=== PATIENT | male | born 1965 | race Caucasian/White ===

== ENCOUNTER 2017-05-13 13:11 | Inpatient (IN) | payer OTHER ==
[2017-05-13 13:16] VITALS: BMI 28.4
--- NOTE | 2017-05-13 19:07 | HP ---
CIWA Score - CIWA Score Nausea/Vomitin Muscle Tremors: 3 Anxiety: 3 Agitation: 3 Paroxysmal Sweats: 2 Orientation: 0-Oriented Tacttile Disturbances: 2-Mild Itch/Numbness/Burn Auditory Disturbances: 2-Mild Harshness/Frighten Visual Disturbances: 2-Mild Sensitivity Headache: 2-Mild CIWA-Ar Total Score: 22 Admission ROS BHS - HPI Chief Complaint: i am here need help to top drinking Allergies/Adverse Reactions: Allergies Allergy/AdvReac Type Severity Reaction Status Date / Time No Known Allergies Allergy Verified 05/13/17 19:04 History of Present Illness: this 51 years old male with alcohol dependence,seeking detox,withdrawal symptom, last detox [address] [facility] alcohol related syncope anxiety,depression,insomnia longest period of sobriety 2 years Exam Limitations: No Limitations - Ebola screening Have you traveled outside of the country in the last 21 days: No Have you been sick,other than usual withdrawal symptoms: No - Review of Systems Constitutional: Loss of Appetite, Malaise, Night Sweats, Changes in sleep, Weakness, Unintentional Wgt. Loss EENT: reports: Nose Congestion Respiratory: reports: No Symptoms reported Cardiac: reports: Palpitations GI: reports: Diarrhea, Nausea, Vomiting, Abdominal cramping : reports: No Symptoms Reported Musculoskeletal: reports: Back Pain, Muscle Pain Integumentary: reports: Dryness Neuro: reports: No Symptoms reported, Headache, Tremors Endocrine: reports: No Symptoms Reported Hematology: reports: No Symptoms Reported Psychiatric: reports: No Sypmtoms Reported, Judgement Intact, Mood/Affect Appropiate, Orientated x3 (insomnia), Anxious, Depressed Patient History - Patient Medical History Hx Anemia: No Hx Asthma: No Hx Chronic Obstructive Pulmonary Disease (COPD): No Hx Cancer: No Hx Cardiac Disorders: No Hx Congestive Heart Failure: No Hx Hypertension: No Hx Hypercholesterolemia: No Hx Pacemaker: No HX Cerebrovascular Accident: No Hx Seizures: No Hx Dementia: No Hx Diabetes: No Hx Gastrointestinal Disorders: No Hx Liver Disease: No Hx Genitourinary Disorders: No Hx Sexually Transmitted Disorders: No Hx Renal Disease (ESRD): No Hx Thyroid Disease: No Hx Human Immunodeficiency Virus (HIV): No (last tested negative in 2016) Hx Hepatitis C: No Hx Depression: Yes (insomnia) Hx Suicide Attempt: No Hx Bipolar Disorder: No Hx Schizophrenia: No Other Medical History: no suicidal,no hoicidal - Patient Surgical History Past Surgical History: No - PPD History Documented Results: Negative w/o proof Implanted On Prior [facility] Admission?: No PPD to be Administered?: Yes - Smoking Cessation Smoking history: Never smoked - Substance & Tx. History Hx Alcohol Use: Yes Hx Substance Use: No Substance Use Type: Alcohol Hx Substance Use Treatment: Yes (rafael 2015 ) - Substances Abused Alcohol Route: Oral Frequency: Daily Amount used: 2pints of vodka Age of first use: 16 Date of Last Use: 05/13/17 Family Disease History - Family Disease History Family Disease History: Diabetes: Mother (), [place]: Father (prostate ) Admission Physical Exam [facility] - Vital Signs Vital Signs: Vital Signs - 24 hr 05/13/17 13:15 Temperature 96.9 F L Pulse Rate 84 Respiratory 18 Rate Blood Pressure 109/71 - Physical General Appearance: Yes: Moderate Distress, Tremorous, Irritable, Sweating, Anxious HEENTM: Yes: Normal ENT Inspection, Normocephalic, [place], Pharynx Normal Respiratory: Yes: Lungs Clear, Normal Breath Sounds, No Respiratory Distress Neck: Yes: Within Normal Limits, Supple, Trachea in good position Breast: Yes: Within Normal Limits Cardiology: Yes: Within Normal Limits, Regular Rhythm, Regular Rate, S1, S2 Abdominal: Yes: Within Normal Limits, Normal Bowel Sounds, Non Tender, Flat, Soft Genitourinary: Yes: Within Normal Limits Back: Yes: Within Normal Limits, Normal Inspection, Muscle Spasm Extremities: Yes: Within Normal Limits, Tremors Neurological: Yes: wood scaler II-XII NML intact, Fully Oriented, Alert, Motor Strength 5/5 Integumentary: Yes: Dry Lymphatic: Yes: Within Normal Limits - Diagnostic (1) Alcohol dependence with uncomplicated withdrawal Current Visit: Yes Status: Acute (2) Syncope Current Visit: Yes Status: Acute (3) Weight loss Current Visit: Yes Status: Acute (4) Insomnia secondary to depression with anxiety Current Visit: Yes Status: Acute Cleared for Admission [facility] - Detox or Rehab [facility] Level of Care: Medically Managed Detox Regimen/Protocol: Librium S Breath Alcohol Content Breath Alcohol Content: 0.132 Urine Drug Screen - Results Drug Screen Negative: Yes
[2017-05-13] MEDS ORDERED: guaiFENesin/D-METHORPHAN HB 10 ML UNIT-DOSE CUPS PO PRN (19:21)
[2017-05-13] MEDS ORDERED: MENTHOL/PHENOL 1 EACH UD MM PRN (19:21)
[2017-05-13] MEDS ORDERED: MAGNESIUM CITRATE 300 ML BOTTLE PO PRN (19:21)
[2017-05-13] MEDS ORDERED: IBUPROFEN 400 MG TABLET (FP) PO PRN (19:21)
[2017-05-13] MEDS ORDERED: MAG HYDROX/AL HYDROX/SIMETH 30 ML UNIT-DOSE CUP PO PRN (19:21)
[2017-05-13] MEDS ORDERED: chlordiazePOXIDE HCL 25 MG CAPSULE PO PRN (19:21)
[2017-05-13] MEDS ORDERED: LOPERAMIDE HCL 2 MG CAPSULE PO PRN (19:21)
[2017-05-13] MEDS ORDERED: P-EPHED 60MG/TRIPROLIDI 2.5MG TABLET PO PRN (19:21)
[2017-05-13] MEDS ORDERED: hydrOXYzine PAMOATE 50 MG CAPSULE (FP) PO PRN (19:21)
[2017-05-13] MEDS ORDERED: ACETAMINOPHEN 325 MG TABLET (FP) PO PRN (19:21)
[2017-05-13] MEDS ORDERED: MAGNESIUM HYDROX 2400MG/30ML ORAL SUSPENSION 30 ML CUP PO PRN (19:21)
[2017-05-13] MEDS ORDERED: chlordiazePOXIDE HCL 25 MG CAPSULE PO ONE (19:21)
[2017-05-13] MEDS: THIAMINE HCL 100 MG TABLET (FP) PO SCH (22:43)
[2017-05-13] MEDS: chlordiazePOXIDE HCL 25 MG CAPSULE PO SCH (22:43)
[2017-05-13 23:39] LABS: URINE APPEARANCE CLEAR; URINE BILIRUBIN NEGATIVE (NEGATIVE); URINE BLOOD NEGATIVE (NEGATIVE); URINE COLOR AMBER; URINE GLUCOSE (UA) NEGATIVE (NEGATIVE); URINE KETONE NEGATIVE (NEGATIVE); URINE LEUK ESTERASE NEGATIVE (NEGATIVE); URINE NITRITE NEGATIVE (NEGATIVE); URINE UROBILINOGEN 4.0 E.U/dl mg/dL (0.2-1.0)
[2017-05-13 23:48] LABS: URINE PROTEIN 1+ (NEGATIVE)
[2017-05-14 00:13] LABS: CALCIUM OXALATE CRYSTALS RARE /hpf (NONE SEEN); URINE MUCUS FEW
[2017-05-14] MEDS: chlordiazePOXIDE HCL 25 MG CAPSULE PO SCH ×4 (05:26→22:14)
--- NOTE | 2017-05-14 10:03 | PN ---
S CIWA - CIWA Score Nausea/Vomitin Muscle Tremors: 3 Anxiety: 3 Agitation: 2 Paroxysmal Sweats: 1-Minimal Palms Moist Orientation: 0-Oriented Tacttile Disturbances: 1-Very Mild Itch/Numbness Auditory Disturbances: 1-Very Mild Visual Disturbances: 0-None Headache: 2-Mild CIWA-Ar Total Score: 16 BHS Progress Note (SOAP) Subjective: ALERT,IRRITABLE,ANXIOUS,INTERRUPTED SLEEP,TREMOR Objective: 05/14/17 10:02 Vital Signs Temperature 97.1 F L 05/14/17 06:38 Pulse Rate 60 05/14/17 06:38 Respiratory Rate 18 05/14/17 06:38 Blood Pressure 131/85 05/14/17 06:38 O2 Sat by Pulse Oximetry (%) 05/14/17 10:02 EKG NSR,NORMAL ECG Laboratory Last Values Urine Color Gris 05/13/17 23:25 Urine Appearance Clear 05/13/17 23:25 Urine pH 6.0 (5.0-8.0) 05/13/17 23:25 Ur Specific [place] 1.028 (1.001-1.035) 05/13/17 23:25 Urine Protein 1+ (NEGATIVE) H 05/13/17 23:25 Urine Glucose (UA) Negative (NEGATIVE) 05/13/17 23:25 Urine Ketones Negative (NEGATIVE) 05/13/17 23:25 Urine Blood Negative (NEGATIVE) 05/13/17 23:25 Urine Nitrite Negative (NEGATIVE) 05/13/17 23:25 Urine Bilirubin Negative (NEGATIVE) 05/13/17 23:25 Urine Urobilinogen 4.0 e.u/dl mg/dL (0.2-1.0) 05/13/17 23:25 Ur Leukocyte Esterase Negative (NEGATIVE) 05/13/17 23:25 Urine WBC (Auto) 2 /hpf (3-5) 05/13/17 23:25 Urine RBC (Auto) 2 /hpf (0-3) 05/13/17 23:25 Calcium Oxalate Crystal Rare /hpf (NONE SEEN) 05/13/17 23:25 Urine Mucus Few 05/13/17 23:25 LABS PENDING Assessment: 05/14/17 10:03 WITHDRAWAL SYMPTOM Plan: CONTINUE DETOX
--- NOTE | 2017-05-14 10:04 | CONSULT ---
[facility] Psychiatric Consult - Data Date of interview: 05/14/17 Admission source: [facility] Identifying data: Pt. is a 51 year old single male, father of two kids, and currently unemployed. This is patient's first admission to [facility]. Pt. admitted to for alcohol dependence. Substance Abuse History: Following information confirmed with Mr. Lopez: Substance & Tx. History. Hx Alcohol Use: Yes. Hx Substance Use: No. Substance Use Type: Alcohol. Hx Substance Use Treatment: Yes (rafael Cheung ). - Substances Abused. Alcohol. Route: Oral. Frequency: Daily. Amount used : 2pints of vodka. Age of first use: 16. Date of Last Use: 05/13/17 Medical History: Denies. Psychiatric History: Pt. denies h/o psychiatric hospitalization, outpatient care , and suicide attempt. Physical/Sexual Abuse/Trauma History: Denies. Mental Status Exam - Mental Status Exam Alert and Oriented to: Time, Place, Person Cognitive Function: Good Patient Appearance: Well Groomed Mood: Euthymic Affect: Mood Congruent Patient Behavior: Appropriate Speech Pattern: Appropriate Voice Loudness: Normal Thought Process: Goal Oriented Thought Disorder: Not Present Hallucinations: Denies Suicidal Ideation: Denies Homicidal Ideation: Denies Insight/Judgement: Poor Sleep: Fair Appetite: Fair Muscle strength/Tone: Normal Gait/Station: Normal Psychiatric Findings - Problem List ([place] 1, 2,3) (1) Alcohol dependence with uncomplicated withdrawal Current Visit: Yes Status: Acute - Initial Treatment Plan Initial Treatment Plan: Psychoeducation provided. Detoxification provided. Observation.
[2017-05-14] MEDS: PRENATAL VITAMINS W/ FOLIC ACID TABLET (FP) PO SCH (10:24)
[2017-05-14 10:43] LABS: HEMATOCRIT 38.8 % (35.4-49); HEMOGLOBIN 12.9 GM/dL (11.7-16.9); MCH 33.3 pg (25.7-33.7); MCHC 33.1 g/dl (32.0-35.9); MEAN CELL VOLUME 100.4 fl (80-96); MEAN PLT VOLUME 9.6 fl (7.5-11.1); PLATELET COUNT 140 K/MM3 (134-434); RBC 3.86 M/mm3 (4.00-5.60); RDW 13.6 % (11.9-15.9); WHITE BLOOD COUNT 3.4 K/mm3 (4.0-10.0)
[2017-05-14 10:52] LABS: CHLORIDE 99 mmol/L (98-107); POTASSIUM 3.2 mmol/L (3.5-5.1); SODIUM 140 mmol/L (136-145)
[2017-05-14 11:08] LABS: ALBUMIN 3.4 g/dl (3.4-5.0); ALK PHOS 59 U/L (45-117); ANION GAP 9 (8-16); BILIRUBIN,TOTAL 2.1 mg/dL (0.2-1.0); BLOOD UREA NITROGEN 9 mg/dL (7-18); CALCIUM 8.8 mg/dL (8.5-10.1); CO2 32 mmol/L (21-32); CREATININE 0.8 mg/dL (0.7-1.3); GLUCOSE,RANDOM 86 mg/dL (74-106); SGOT/AST 52 U/L (15-37); SGPT/ALT 64 U/L (12-78); TOT PROT 6.5 g/dl (6.4-8.2)
[2017-05-14] MEDS ORDERED: FLU VACCINE QUAD 60 MCG/0.5 ML (MDV 17-18) IM ONE (12:00)
[2017-05-14 12:51] LABS: SICKLE CELL SCREEN NEGATIVE (NEGATIVE)
[2017-05-14] MEDS: THIAMINE HCL 100 MG TABLET (FP) PO SCH (22:14)
--- NOTE | 2017-05-14 23:29 | EKG ---
Test Reason : Blood Pressure : / mmHG Vent. Rate : 071 BPM Atrial Rate : 071 BPM P-R Int : 174 ms QRS Dur : 100 ms QT Int : 394 ms P-R-T Axes : 070 055 022 degrees QTc Int : 428 ms NORMAL SINUS RHYTHM NORMAL ECG NO PREVIOUS ECGS AVAILABLE Confirmed by GENNY BOLIVAR, IZZY ([id number]) on 05/14/2017 11:28:44 PM Referred By: Rudy Sargent Confirmed By:IZZY ROYAL MD
[2017-05-15] MEDS: chlordiazePOXIDE HCL 25 MG CAPSULE PO SCH ×3 (05:14→17:32)
--- NOTE | 2017-05-15 09:39 | PN ---
S CIWA - CIWA Score Nausea/Vomitin Muscle Tremors: 3 Anxiety: 3 Agitation: 3 Paroxysmal Sweats: No Perspiration Orientation: 0-Oriented Tacttile Disturbances: 1-Very Mild Itch/Numbness Auditory Disturbances: 1-Very Mild Visual Disturbances: 0-None Headache: 2-Mild CIWA-Ar Total Score: 16 BHS Progress Note (SOAP) Subjective: ALERT,IRRITABLE,ANXIOUS,INTERRUPTED SLEEP,TREMOR Objective: 05/15/17 09:39 Vital Signs Temperature 98.4 F 05/15/17 06:00 Pulse Rate 73 05/15/17 06:00 Respiratory Rate 18 05/15/17 06:00 Blood Pressure 116/83 05/15/17 06:00 O2 Sat by Pulse Oximetry (%) 05/15/17 09:40 Laboratory Last Values WBC 3.4 K/mm3 (4.0-10.0) L 05/14/17 08:10 RBC 3.86 M/mm3 (4.00-5.60) L 05/14/17 08:10 Hgb 12.9 GM/dL (11.7-16.9) 05/14/17 08:10 Hct 38.8 % (35.4-49) 05/14/17 08:10 MCV 100.4 fl (80-96) H 05/14/17 08:10 MCH 33.3 pg (25.7-33.7) 05/14/17 08:10 MCHC 33.1 g/dl (32.0-35.9) 05/14/17 08:10 RDW 13.6 % (11.9-15.9) 05/14/17 08:10 Plt Count 140 K/MM3 (134-434) 05/14/17 08:10 MPV 9.6 fl (7.5-11.1) 05/14/17 08:10 Sickle Cell Screen Negative (NEGATIVE) 05/14/17 08:10 Sodium 140 mmol/L (136-145) 05/14/17 08:10 Potassium 3.2 mmol/L (3.5-5.1) L 05/14/17 08:10 Chloride 99 mmol/L (98-107) 05/14/17 08:10 Carbon Dioxide 32 mmol/L (21-32) 05/14/17 08:10 Anion Gap 9 (8-16) 05/14/17 08:10 BUN 9 mg/dL (7-18) 05/14/17 08:10 Creatinine 0.8 mg/dL (0.7-1.3) 05/14/17 08:10 Creat Clearance w eGFR > 60 (>60) 05/14/17 08:10 Random Glucose 86 mg/dL (74-106) 05/14/17 08:10 Calcium 8.8 mg/dL (8.5-10.1) 05/14/17 08:10 Total Bilirubin 2.1 mg/dL (0.2-1.0) H 05/14/17 08:10 AST 52 U/L (15-37) H 05/14/17 08:10 ALT 64 U/L (12-78) 05/14/17 08:10 Alkaline Phosphatase 59 U/L (45-117) 05/14/17 08:10 Total Protein 6.5 g/dl (6.4-8.2) 05/14/17 08:10 Albumin 3.4 g/dl (3.4-5.0) 05/14/17 08:10 Urine Color Gris 05/13/17 23:25 Urine Appearance Clear 05/13/17 23:25 Urine pH 6.0 (5.0-8.0) 05/13/17 23:25 Ur Specific [place] 1.028 (1.001-1.035) 05/13/17 23:25 Urine Protein 1+ (NEGATIVE) H 05/13/17 23:25 Urine Glucose (UA) Negative (NEGATIVE) 05/13/17 23:25 Urine Ketones Negative (NEGATIVE) 05/13/17 23:25 Urine Blood Negative (NEGATIVE) 05/13/17 23:25 Urine Nitrite Negative (NEGATIVE) 05/13/17 23:25 Urine Bilirubin Negative (NEGATIVE) 05/13/17 23:25 Urine Urobilinogen 4.0 e.u/dl mg/dL (0.2-1.0) 05/13/17 23:25 Ur Leukocyte Esterase Negative (NEGATIVE) 05/13/17 23:25 Urine WBC (Auto) 2 /hpf (3-5) 05/13/17 23:25 Urine RBC (Auto) 2 /hpf (0-3) 05/13/17 23:25 Calcium Oxalate Crystal Rare /hpf (NONE SEEN) 05/13/17 23:25 Urine Mucus Few 05/13/17 23:25 RPR Titer Nonreactive (NONREACTIVE) 05/14/17 08:10 HIV 1&2 Antibody Screen Negative 05/14/17 08:10 HIV P24 Antigen Negative 05/14/17 08:10 Assessment: 05/15/17 09:39 WITHDRAWAL SYMPTOM Plan: CONTINUE DETOX,HYPOKALEMIA K IS 3.2,K DUR 20 MEQ PO BID,REPEAT CBC,CMP IN AM, INITAIL CBC WBC IS 3,400
[2017-05-15] MEDS: PRENATAL VITAMINS W/ FOLIC ACID TABLET (FP) PO SCH (10:19)
[2017-05-15] MEDS: POTASSIUM CHLORIDE TABS 20 MEQ TABLET.ER (FP) PO SCH ×2 (10:20→22:25)
[2017-05-15] MEDS: THIAMINE HCL 100 MG TABLET (FP) PO SCH (22:25)
[2017-05-15] MEDS: chlordiazePOXIDE 5 MG CAPSULE PO SCH (22:25)
[2017-05-16] MEDS: chlordiazePOXIDE 5 MG CAPSULE PO SCH ×3 (05:36→17:55)
[2017-05-16] MEDS: POTASSIUM CHLORIDE TABS 20 MEQ TABLET.ER (FP) PO SCH ×2 (10:11→22:34)
[2017-05-16] MEDS: PRENATAL VITAMINS W/ FOLIC ACID TABLET (FP) PO SCH (10:11)
--- NOTE | 2017-05-16 10:15 | PN ---
S Progress Note (SOAP) Subjective: ALERT,IRRITABLE,ANXIOUS,INTERRUPTED SLEEP Objective: 05/16/17 10:14 Vital Signs Temperature 98.2 F 05/16/17 10:07 Pulse Rate 85 05/16/17 10:07 Respiratory Rate 18 05/16/17 10:07 Blood Pressure 123/76 05/16/17 10:07 O2 Sat by Pulse Oximetry (%) Assessment: 05/16/17 10:14 WITHDRAWAL SYMPTOM Plan: CONTINUE DETOX,DISCHARGE IN AM
[2017-05-16 10:27] LABS: HEMOGLOBIN 13.2 GM/dL (11.7-16.9); MCH 32.8 pg (25.7-33.7); MCHC 32.3 g/dl (32.0-35.9); MEAN CELL VOLUME 101.5 fl (80-96); MEAN PLT VOLUME 9.6 fl (7.5-11.1); PLATELET COUNT 152 K/MM3 (134-434); RBC 4.04 M/mm3 (4.00-5.60); RDW 13.3 % (11.9-15.9); WHITE BLOOD COUNT 3.6 K/mm3 (4.0-10.0)
[2017-05-16 11:05] LABS: CHLORIDE 102 mmol/L (98-107); POTASSIUM 3.8 mmol/L (3.5-5.1); SODIUM 141 mmol/L (136-145)
[2017-05-16 11:19] LABS: ALBUMIN 3.5 g/dl (3.4-5.0); ALK PHOS 59 U/L (45-117); ANION GAP 13 (8-16); BLOOD UREA NITROGEN 9 mg/dL (7-18); CALCIUM 9.7 mg/dL (8.5-10.1); CO2 26 mmol/L (21-32); CREATININE 0.9 mg/dL (0.7-1.3); GLUCOSE,RANDOM 127 mg/dL (74-106); SGOT/AST 55 U/L (15-37); SGPT/ALT 72 U/L (12-78); TOT PROT 7.2 g/dl (6.4-8.2)
[2017-05-16] MEDS: THIAMINE HCL 100 MG TABLET (FP) PO SCH (22:13)
[2017-05-16] MEDS: chlordiazePOXIDE HCL 10 MG CAPSULE PO SCH (22:13)
[2017-05-16] MEDS ORDERED: diphenhydrAMINE HCL 25 MG CAPSULE (FP) PO PRN (23:00)
[2017-05-17] MEDS: chlordiazePOXIDE HCL 10 MG CAPSULE PO SCH (05:51)
--- NOTE | 2017-05-17 05:57 | DS ---
[facility] Detox Discharge Summary Admission Date: 05/13/17 Discharge Date: 05/17/17 - History Present History: Alcohol Dependence Additional Comments: follow up with [facility] as arrangement Pertinent Past History: syncope alcohol related weight loss insomnia anxiety and depression - Physical Exam Results Vital Signs: Vital Signs Temperature 98.6 F 05/16/17 22:55 Pulse Rate 82 05/16/17 22:55 Respiratory Rate 18 05/17/17 03:30 Blood Pressure 144/79 05/16/17 22:55 O2 Sat by Pulse Oximetry (%) Pertinent Admission Physical Exam Findings: withdrawal signs and symptom Vital Signs Temperature 98.6 F 05/16/17 22:55 Pulse Rate 82 05/16/17 22:55 Respiratory Rate 18 05/17/17 03:30 Blood Pressure 144/79 05/16/17 22:55 O2 Sat by Pulse Oximetry (%) - Treatment Hospital Course: Detox Protocol Followed, Detoxed Safely, Responded well, Discharged Condition Good Patient has Accepted a Rehab Referral to: declined - Medication Discharge Medications: Ambulatory Orders NK [No Known Home Medication] 05/13/17 - Diagnosis (1) Alcohol dependence with uncomplicated withdrawal Current Visit: Yes Status: Acute (2) Syncope Current Visit: Yes Status: Acute (3) Weight loss Current Visit: Yes Status: Acute (4) Insomnia secondary to depression with anxiety Current Visit: Yes Status: Acute (5) Hypokalemia Current Visit: Yes Status: Acute - AMA Did Patient Leave Against Medical Advice: No
[2017-05-17 06:17] VITALS: BP 131/58; PULSE 96; TEMP 98.1
== END 2017-05-17 06:40 | disposition home or self-care (01) | DRG 775 ==
LOC: YASAS 13:11 → Y6N 17:44
PROVIDERS: ADMIT Internal Medicine; ATTEND Internal Medicine
PROC: HZ2ZZZZ Detoxification Services for Substance Abuse Treatment (ICD-10-PCS; principal; 2017-05-13)
PROC: HZ2ZZZZ Detoxification Services for Substance Abuse Treatment (ICD-10-PCS; 2017-05-13)
DX: F10.230 Alcohol dependence with withdrawal, uncomplicated (principal); F51.05 Insomnia due to other mental disorder; F41.8 Other specified anxiety disorders; E87.6 Hypokalemia; R55 Syncope and collapse; R63.4 Abnormal weight loss; Z68.28 Body mass index [BMI] 28.0-28.9, adult
CPT/HCPCS: 36415; 80053; 81003; 81015; 85027; 85660; 86593; 87389; 90688; 93005; 93010; G0008

== ENCOUNTER 2018-09-09 20:36 | Inpatient (IN) | payer OTHER ==
[2018-09-09 23:12] VITALS: BMI 29.0
--- NOTE | 2018-09-10 01:21 | HP ---
CIWA Score - Admission Criteria [facility]ASAS Guidelines: Admission for Medically Managed Detox: Requires at least one of the followin. CIWA greater than 12 2. Seizures within the past 24 hours 3. Delirium tremens within the past 24 hours 4. Hallucinations within the past 24 hours 5. Acute intervention needed for co occurring medical disorder 6. Acute intervention needed for co occurring psychiatric disorder 7. Severe withdrawal that cannot be handled at a lower level of care (continued vomiting, continued diarrhea, abnormal vital signs) requiring intravenous medication and/or fluids 8. Admission ROS S - HPI Allergies/Adverse Reactions: Allergies Allergy/AdvReac Type Severity Reaction Status Date / Time No Known Allergies Allergy Verified 09/09/18 23:04 - Ebola screening Have you traveled outside of the country in the last 21 days: No (N) Have you had contact with anyone from an Ebola affected area: No Do you have a fever: No Patient History - Patient Medical History Hx Anemia: No Hx Asthma: No Hx Chronic Obstructive Pulmonary Disease (COPD): No Hx Cancer: No Hx Cardiac Disorders: No Hx Congestive Heart Failure: No Hx Hypertension: No Hx Hypercholesterolemia: No Hx Pacemaker: No HX Cerebrovascular Accident: No Hx Seizures: No Hx Dementia: No Hx Diabetes: No Hx Gastrointestinal Disorders: No Hx Liver Disease: No Hx Genitourinary Disorders: No Hx Sexually Transmitted Disorders: No Hx Renal Disease (ESRD): No Hx Thyroid Disease: No Hx Human Immunodeficiency Virus (HIV): No (last tested negative in 2015) Hx Hepatitis C: No Hx Depression: Yes Hx Suicide Attempt: No Hx Bipolar Disorder: No Hx Schizophrenia: No - Patient Surgical History Past Surgical History: No Hx Neurologic Surgery: No Hx Cataract Extraction: No Hx Cardiac Surgery: No Hx Lung Surgery: No Hx Breast Surgery: No Hx Breast Biopsy: No Hx Abdominal Surgery: No Hx Appendectomy: No Hx Cholecystectomy: No Hx Genitourinary Surgery: No Hx Section: No Hx Orthopedic Surgery: No Anesthesia Reaction: No - PPD History Date: 05/15/17 - Smoking Cessation Smoking history: Never smoked Hx Chewing Tobacco Use: No - Substances abused Alcohol Substance route: Oral Frequency: Daily Amount used: Vodka 2 pints Age of first use: 17 Date of last use: 09/08/18 Family Disease History - Family Disease History Family Disease History: Diabetes: Mother (), [place]: Father (prostate ) Admission Physical Exam S - Vital Signs Vital Signs: Vital Signs - 24 hr 09/09/18 23:01 Temperature 98.6 F Pulse Rate 81 Respiratory 18 Rate Blood Pressure 109/74 Breathalyzer - Breathalyzer Breathalyzer: 0.275 Urine Drug Screen - Test Device Lot number: [id number] Expiration date: 05/23/20 - Control Is test valid?: Yes - Results Drug screen NEGATIVE: Yes
--- NOTE | 2018-09-10 01:27 | HP ---
CIWA Score Nausea/Vomitin (Vomiting x 4) Muscle Tremors: 4-Moderate,w/Arms Extend Anxiety: 3 Agitation: 3 Paroxysmal Sweats: 2 Orientation: 2-Disoriented Date<2 days Tacttile Disturbances: 0-None Auditory Disturbances: 0-None Visual Disturbances: 0-None Headache: 3-Moderate CIWA-Ar Total Score: 20 - Admission Criteria OASAS Guidelines: Admission for Medically Managed Detox: Requires at least one of the followin. CIWA greater than 12 2. Seizures within the past 24 hours 3. Delirium tremens within the past 24 hours 4. Hallucinations within the past 24 hours 5. Acute intervention needed for co occurring medical disorder 6. Acute intervention needed for co occurring psychiatric disorder 7. Severe withdrawal that cannot be handled at a lower level of care (continued vomiting, continued diarrhea, abnormal vital signs) requiring intravenous medication and/or fluids 8. Admission ROS [facility] Chief Complaint: Alcohol withdrawal symptoms Allergies/Adverse Reactions: Allergies Allergy/AdvReac Type Severity Reaction Status Date / Time No Known Allergies Allergy Verified 09/09/18 23:04 History of Present Illness: 53 years old male with a long history of alcohol dependence and two months of heavy alcohol abuse is seeking admission to detox. He has been in previous detox and reports a year of sobriety. He has history of depression and denies suicidal ideation at this time. Exam Limitations: No Limitations - Ebola screening Have you traveled outside of the country in the last 21 days: No (N) Have you had contact with anyone from an Ebola affected area: No Do you have a fever: No - Review of Systems Constitutional: Chills, Loss of Appetite, Malaise, Night Sweats, Changes in sleep EENT: reports: No Symptoms Reported Respiratory: reports: No Symptoms reported Cardiac: reports: No Symptoms Reported GI: reports: Nausea, Poor Appetite, Poor Fluid Intake, Vomiting, Abdominal cramping : reports: No Symptoms Reported Musculoskeletal: reports: No Symptoms Reported Integumentary: reports: Dryness, Flushing Neuro: reports: Headache, Tremors Endocrine: reports: No Symptoms Reported Hematology: reports: No Symptoms Reported Psychiatric: reports: Anxious, Depressed Other Systems: Reviewed and Negative Patient History - Patient Medical History Hx Anemia: No Hx Asthma: No Hx Chronic Obstructive Pulmonary Disease (COPD): No Hx Cancer: No Hx Cardiac Disorders: No Hx Congestive Heart Failure: No Hx Hypertension: No Hx Hypercholesterolemia: No Hx Pacemaker: No HX Cerebrovascular Accident: No Hx Seizures: No Hx Dementia: No Hx Diabetes: No Hx Gastrointestinal Disorders: No Hx Liver Disease: No Hx Genitourinary Disorders: No Hx Sexually Transmitted Disorders: No Hx Renal Disease (ESRD): No Hx Thyroid Disease: No Hx Human Immunodeficiency Virus (HIV): No (Negative 2016) Hx Hepatitis C: No Hx Depression: Yes (Not on medication) Hx Suicide Attempt: No (Denies suicidal ideation at this time) Hx Bipolar Disorder: No Hx Schizophrenia: No - Patient Surgical History Past Surgical History: No Hx Neurologic Surgery: No Hx Cataract Extraction: No Hx Cardiac Surgery: No Hx Lung Surgery: No Hx Abdominal Surgery: No Hx Appendectomy: No Hx Cholecystectomy: No Hx Genitourinary Surgery: No Hx Orthopedic Surgery: No Anesthesia Reaction: No - PPD History Previous Implant?: Yes Documented Results: Negative w/proof Implanted On Prior R Admission?: Yes Date: 05/15/17 PPD to be Administered?: Yes - Reproductive History Patient is a Female of Child Bearing Age (11 -55 yrs old): No (male) - Smoking Cessation Smoking history: Never smoked Have you smoked in the past 12 months: No Hx Chewing Tobacco Use: No Initiated information on smoking cessation: No - Substance & Tx. History Hx Alcohol Use: Yes - Substances abused Alcohol Substance route: Oral Frequency: Daily Amount used: Vodka 2 pints Age of first use: 17 Date of last use: 09/08/18 Family Disease History - Family Disease History Family Disease History: Diabetes: Mother (), [place]: Father (prostate ) Admission Physical Exam S - Vital Signs Vital Signs: Vital Signs - 24 hr 09/09/18 23:01 Temperature 98.6 F Pulse Rate 81 Respiratory 18 Rate Blood Pressure 109/74 - Physical General Appearance: Yes: Severe Distress, Alcohol on Breath, Intoxicated, Tremorous, Irritable HEENTM: Yes: Within Normal Limits Respiratory: Yes: Lungs Clear, Normal Breath Sounds, No Respiratory Distress Neck: Yes: Within Normal Limits Breast: Yes: Breast Exam Deferred Cardiology: Yes: Regular Rhythm, Regular Rate Abdominal: Yes: Within Normal Limits Genitourinary: Yes: Within Normal Limits Back: Yes: Within Normal Limits Musculoskeletal: Yes: Within Normal Limits Extremities: Yes: Tremors Neurological: Yes: Alert, Normal Mood/Affect Integumentary: Yes: Warm Lymphatic: Yes: Within Normal Limits - Diagnostic (1) Depression Current Visit: Yes Status: Chronic Qualifiers: Depression Type: unspecified Qualified Code(s): F32.9 - Major depressive disorder, single episode, unspecified (2) Alcohol dependence with uncomplicated withdrawal Current Visit: Yes Status: Chronic Cleared for Admission S - Detox or Rehab [facility] Level of Care: Medically Managed Detox Regimen/Protocol: Librium Breathalyzer - Breathalyzer Breathalyzer: 0.275 Urine Drug Screen - Test Device Lot number: [id number] Expiration date: 05/23/20 - Control Is test valid?: Yes - Results Drug screen NEGATIVE: Yes Urine drug screen results: THC-Marijuana Inpatient Rehab Admission - Rehab Decision to Admit Inpatient rehab admission?: No
[2018-09-10] MEDS ORDERED: MENTHOL/PHENOL 1 EACH UD MM PRN (01:35)
[2018-09-10] MEDS ORDERED: MAGNESIUM HYDROX 2400MG/30ML ORAL SUSPENSION 30 ML CUP PO PRN (01:35)
[2018-09-10] MEDS ORDERED: IBUPROFEN 400 MG TABLET (FP) PO PRN (01:35)
[2018-09-10] MEDS ORDERED: ACETAMINOPHEN 325 MG TABLET (FP) PO PRN ×2 (01:35)
[2018-09-10] MEDS ORDERED: MAGNESIUM CITRATE 300 ML BOTTLE PO PRN (01:35)
[2018-09-10] MEDS ORDERED: chlordiazePOXIDE HCL 25 MG CAPSULE PO PRN (01:35)
[2018-09-10] MEDS ORDERED: BISMUTH SUBSALICYLATE 524 MG/30 ML UD PO PRN (01:35)
[2018-09-10] MEDS ORDERED: METHOCARBAMOL 500 MG TABLET PO PRN (01:35)
[2018-09-10] MEDS ORDERED: MAG HYDROX/AL HYDROX/SIMETH 30 ML UNIT-DOSE CUP PO PRN (01:35)
[2018-09-10] MEDS: chlordiazePOXIDE HCL 25 MG CAPSULE PO SCH ×4 (05:47→22:15)
[2018-09-10] MEDS: PRENATAL VITAMINS W/ FOLIC ACID TABLET (FP) PO SCH (10:26)
--- NOTE | 2018-09-10 10:33 | PN ---
BHS CIWA - CIWA Score Nausea/Vomitin Muscle Tremors: 2 Anxiety: 2 Agitation: 2 Paroxysmal Sweats: 1-Minimal Palms Moist Orientation: 0-Oriented Tacttile Disturbances: 1-Very Mild Itch/Numbness Auditory Disturbances: 1-Very Mild Visual Disturbances: 0-None Headache: 2-Mild CIWA-Ar Total Score: 13 BHS Progress Note (SOAP) Subjective: alert,irritable,anxious,interrupted sleep,tremor Objective: 09/10/18 10:32 Vital Signs Temperature 98.2 F 09/10/18 10:04 Pulse Rate 82 09/10/18 10:04 Respiratory Rate 16 09/10/18 10:04 Blood Pressure 127/82 09/10/18 10:04 O2 Sat by Pulse Oximetry (%) Assessment: 09/10/18 10:32 withdrawal symptom Plan: continue detox
--- NOTE | 2018-09-10 12:22 | EKG ---
Test Reason : Blood Pressure : / mmHG Vent. Rate : 076 BPM Atrial Rate : 076 BPM P-R Int : 156 ms QRS Dur : 098 ms QT Int : 386 ms P-R-T Axes : 067 069 056 degrees QTc Int : 434 ms NORMAL SINUS RHYTHM NORMAL ECG WHEN COMPARED WITH ECG OF 13-MAY-2017 19:54, NO SIGNIFICANT CHANGE WAS FOUND Confirmed by MD MARIA G, BRENDA ([id number]) on 09/10/2018 12:22:03 PM Referred By: Confirmed By:BRENDA CUMMINS MD
[2018-09-10] MEDS: THIAMINE HCL 100 MG TABLET (FP) PO SCH (22:15)
[2018-09-10] MEDS: MELATONIN 5 MG TABLETS PO PRN (22:15)
[2018-09-11] MEDS: chlordiazePOXIDE HCL 25 MG CAPSULE PO SCH ×4 (05:54→22:13)
[2018-09-11] MEDS: PRENATAL VITAMINS W/ FOLIC ACID TABLET (FP) PO SCH (10:18)
--- NOTE | 2018-09-11 10:33 | PN ---
S CIWA - CIWA Score Nausea/Vomitin-No Nausea/No Vomiting Muscle Tremors: 3 Anxiety: 2 Agitation: 3 Paroxysmal Sweats: 2 Orientation: 0-Oriented Tacttile Disturbances: 0-None Auditory Disturbances: 0-None Visual Disturbances: 0-None Headache: 0-None Present CIWA-Ar Total Score: 10 BHS Progress Note (SOAP) Subjective: sweats tired feeling a bit better Objective: 09/11/18 11:03 Vital Signs Temperature 98.1 F 09/11/18 08:11 Pulse Rate 80 09/11/18 08:11 Respiratory Rate 18 09/11/18 08:11 Blood Pressure 139/94 09/11/18 08:11 O2 Sat by Pulse Oximetry (%) labs pending aaox3 ambulating no acute distress Assessment: 09/11/18 11:04 mild withdrawal sx Plan: continue detox increase fluids pending labs
[2018-09-11 11:49] LABS: HEMATOCRIT 38.6 % (35.4-49); HEMOGLOBIN 13.2 GM/dL (11.7-16.9); MCH 33.4 pg (25.7-33.7); MCHC 34.3 g/dl (32.0-35.9); MEAN CELL VOLUME 97.2 fl (80-96); MEAN PLT VOLUME 8.8 fl (7.5-11.1); PLATELET COUNT 146 K/MM3 (134-434); RBC 3.97 M/mm3 (4.00-5.60); RDW 15.4 % (11.9-15.9); WHITE BLOOD COUNT 4.7 K/mm3 (4.0-10.0)
[2018-09-11 11:51] LABS: ALBUMIN 3.2 g/dl (3.4-5.0); BLOOD UREA NITROGEN 6.7 mg/dL (7-18); CALCIUM 9.1 mg/dL (8.5-10.1); CREATININE 0.9 mg/dL (0.55-1.3); POTASSIUM 3.4 mmol/L (3.5-5.1); TOT PROT 6.7 g/dl (6.4-8.2)
[2018-09-11] MEDS: THIAMINE HCL 100 MG TABLET (FP) PO SCH (22:13)
[2018-09-11] MEDS: MELATONIN 5 MG TABLETS PO PRN (22:13)
[2018-09-11] MEDS: hydrOXYzine PAMOATE 25 MG CAPSULE (FP) PO PRN (22:14)
[2018-09-12] MEDS ORDERED: chlordiazePOXIDE HCL 10 MG CAPSULE PO PRN (05:00)
[2018-09-12] MEDS: chlordiazePOXIDE HCL 10 MG CAPSULE PO SCH ×4 (05:58→22:50)
[2018-09-12] MEDS: PRENATAL VITAMINS W/ FOLIC ACID TABLET (FP) PO SCH (10:20)
--- NOTE | 2018-09-12 11:07 | PN ---
S CIWA - CIWA Score Nausea/Vomitin Muscle Tremors: 2 Anxiety: 2 Agitation: 2 Paroxysmal Sweats: 1-Minimal Palms Moist Orientation: 0-Oriented Tacttile Disturbances: 1-Very Mild Itch/Numbness Auditory Disturbances: 1-Very Mild Visual Disturbances: 0-None Headache: 1-Very Mild CIWA-Ar Total Score: 12 BHS Progress Note (SOAP) Subjective: alert,irritable,interrupted sleep Objective: 09/12/18 11:05 Vital Signs Temperature 98.4 F 09/12/18 09:18 Pulse Rate 87 09/12/18 09:18 Respiratory Rate 18 09/12/18 09:18 Blood Pressure 119/77 09/12/18 09:18 O2 Sat by Pulse Oximetry (%) Laboratory Tests 09/11/18 09/11/18 09/11/18 09:15 09:15 09:15 WBC 4.7 RBC 3.97 L Hgb 13.2 Hct 38.6 MCV 97.2 H MCH 33.4 MCHC 34.3 RDW 15.4 D Plt Count 146 MPV 8.8 Sodium 138 Potassium 3.4 L Chloride 98 Carbon Dioxide 30 Anion Gap 9 BUN 6.7 L Creatinine 0.9 Est GFR (CKD-EPI)AfAm 111.83 Est GFR (CKD-EPI)NonAf 96.49 Random Glucose 148 H Calcium 9.1 Total Bilirubin 2.0 H AST 70 H ALT 47 Alkaline Phosphatase 73 Total Protein 6.7 Albumin 3.2 L RPR Titer Nonreactive Assessment: 09/12/18 11:06 withdrawal symptom Plan: continue detox,k is 3.4,kdur 20 meq po now then bid for 3 days,initial glucose 148,bgm bid,repeat cmp in am
[2018-09-12] MEDS ORDERED: POTASSIUM CHLORIDE TABS 20 MEQ TABLET.ER (FP) PO ONE (12:00)
[2018-09-12] MEDS: POTASSIUM CHLORIDE TABS 20 MEQ TABLET.ER (FP) PO SCH (22:50)
[2018-09-12] MEDS: hydrOXYzine PAMOATE 25 MG CAPSULE (FP) PO PRN (22:50)
[2018-09-12] MEDS: THIAMINE HCL 100 MG TABLET (FP) PO SCH (22:50)
[2018-09-13] MEDS: chlordiazePOXIDE HCL 10 MG CAPSULE PO SCH ×2 (06:05→18:29)
[2018-09-13 10:09] VITALS: BP 112/67; PULSE 96; TEMP 97.9
--- NOTE | 2018-09-13 11:23 | PN ---
S CIWA - CIWA Score Nausea/Vomitin-Mild Nausea/No Vomiting Muscle Tremors: 1-None Visible, but [place] Anxiety: 1-Mildly Anxious Agitation: 1-Slight > Activity Paroxysmal Sweats: No Perspiration Orientation: 0-Oriented Tacttile Disturbances: 1-Very Mild Itch/Numbness Auditory Disturbances: 0-None Visual Disturbances: 0-None Headache: 2-Mild CIWA-Ar Total Score: 7 BHS Progress Note (SOAP) Subjective: alert,irritable,anxious,interrupted sleep, Objective: 09/13/18 11:21 Vital Signs Temperature 97.9 F 09/13/18 10:08 Pulse Rate 96 H 09/13/18 10:08 Respiratory Rate 18 09/13/18 10:08 Blood Pressure 112/67 09/13/18 10:08 O2 Sat by Pulse Oximetry (%) 09/13/18 11:22 on k dur replacement Assessment: 09/13/18 11:22 withdrawal symptom repeat cmp pending Plan: to continue treatment,discharge in am
[2018-09-13 12:26] LABS: ALBUMIN 3.4 g/dl (3.4-5.0); BILIRUBIN,TOTAL 1.1 mg/dL (0.2-1); BLOOD UREA NITROGEN 8.3 mg/dL (7-18); CALCIUM 9.1 mg/dL (8.5-10.1); POTASSIUM 3.9 mmol/L (3.5-5.1); TOT PROT 7.2 g/dl (6.4-8.2)
[2018-09-13] MEDS: POTASSIUM CHLORIDE TABS 20 MEQ TABLET.ER (FP) PO SCH (14:54)
[2018-09-13] MEDS: PRENATAL VITAMINS W/ FOLIC ACID TABLET (FP) PO SCH (14:54)
--- NOTE | 2018-09-13 15:30 | PN ---
S Progress Note Note: pt states he is feeling better and wants to go home. His d/c is for tomorrow. pt has no s/s of any withdrawals. d/c today,
--- NOTE | 2018-09-13 15:31 | DS ---
[facility] Detox Discharge Summary Admission Date: 09/10/18 Discharge Date: 09/13/18 - History Present History: Alcohol Dependence, Cocaine Dependence - Physical Exam Results Vital Signs: Vital Signs Temperature 97.9 F 09/13/18 10:08 Pulse Rate 96 H 09/13/18 10:08 Respiratory Rate 18 09/13/18 10:08 Blood Pressure 112/67 09/13/18 10:08 O2 Sat by Pulse Oximetry (%) - Treatment Hospital Course: Detox Protocol Followed, Detoxed Safely, Responded well, Discharged Condition Good, Rehab Referral Accepted - Diagnosis (1) Cocaine dependence with withdrawal Current Visit: Yes Status: Chronic (2) Alcohol dependence with uncomplicated withdrawal Current Visit: Yes Status: Chronic (3) Depression Current Visit: Yes Status: Chronic Qualifiers: Depression Type: unspecified Qualified Code(s): F32.9 - Major depressive disorder, single episode, unspecified (4) Hypokalemia Current Visit: No Status: Acute (5) Insomnia secondary to depression with anxiety Current Visit: No Status: Acute (6) Syncope Current Visit: No Status: Acute (7) Weight loss Current Visit: No Status: Acute - AMA Did Patient Leave Against Medical Advice: No (going home; referral provided. )
== END 2018-09-13 18:00 | disposition left against medical advice (07) | DRG 770 ==
LOC: YASAS 20:36 → Y6N 09-10 01:52 → UNDODISIN 09-13 12:00
PROVIDERS: ADMIT Surgery; ATTEND Surgery
PROC: HZ2ZZZZ Detoxification Services for Substance Abuse Treatment (ICD-10-PCS; principal; 2018-09-10)
DX: F10.230 Alcohol dependence with withdrawal, uncomplicated (principal); F14.23 Cocaine dependence with withdrawal; F12.20 Cannabis dependence, uncomplicated; F51.05 Insomnia due to other mental disorder; F32.9 Major depressive disorder, single episode, unspecified; E87.6 Hypokalemia; R63.4 Abnormal weight loss; Z68.29 Body mass index [BMI] 29.0-29.9, adult
CPT/HCPCS: 36415; 80053; 82962; 85027; 86593; 93005; 93010

== ENCOUNTER 2021-09-15 12:53 | Emergency (ER) | payer OTHER ==
[2021-09-15 13:12] VITALS: BP 126/72; PULSE 70; TEMP 98.9; BMI 29.0
[2021-09-15 15:59] LABS: URINE APPEARANCE CLEAR; URINE BILIRUBIN NEGATIVE (NEGATIVE); URINE COLOR YELLOW; URINE GLUCOSE (UA) NEGATIVE (NEGATIVE); URINE KETONE NEGATIVE (NEGATIVE); URINE LEUK ESTERASE NEGATIVE (NEGATIVE); URINE NITRITE NEGATIVE (NEGATIVE); URINE PROTEIN NEGATIVE (NEGATIVE); URINE UROBILINOGEN 0.2 mg/dL (0.2-1.0)
[2021-09-15 16:22] LABS: BASO % 2.4 % (0-2.0); EOS % 2.1 % (0-4.5); HEMATOCRIT 38.8 % (35.4-49); HEMOGLOBIN 13.1 GM/dL (11.7-16.9); LYMPH % 55.9 % (8-40); MCH 33.5 pg (25.7-33.7); MCHC 33.9 g/dl (32.0-35.9); MEAN CELL VOLUME 98.8 fl (80-96); MONO % 9.4 % (3.8-10.2); NEUT % 30.2 % (42.8-82.8); PLATELET COUNT 184 10^3/uL (134-434); RBC 3.92 M/mm3 (4.00-5.60); RDW 19.7 % (11.9-15.9); WHITE BLOOD COUNT 3.4 K/mm3 (4.0-10.0)
[2021-09-15 16:43] LABS: CALCIUM 8.2 mg/dL (8.5-10.1)
[2021-09-15 16:44] LABS: BLOOD UREA NITROGEN 6.2 mg/dL (7-18)
[2021-09-15 16:47] LABS: CREATININE 0.8 mg/dL (0.55-1.3)
[2021-09-15 16:49] LABS: BILIRUBIN,TOTAL 1.3 mg/dL (0.2-1)
== END 2021-09-15 18:04 | disposition home or self-care (01) ==
LOC: JER 12:53
DX: F10.239 Alcohol dependence with withdrawal, unspecified (principal)
CPT/HCPCS: 36415; 80053; 81003; 82962; 85025; 87086; 99283-25; C9803-CS; U0003; U0005

== ENCOUNTER 2021-09-15 18:18 | Inpatient (IN) | payer OTHER ==
[2021-09-15 19:27] VITALS: BMI 29.7
[2021-09-15] MEDS ORDERED: METHOCARBAMOL 500 MG TABLET PO PRN (19:34)
[2021-09-15] MEDS ORDERED: ONDANSETRON *ODT* 4 MG TABLET SL PRN (19:34)
[2021-09-15] MEDS ORDERED: BENZOCAINE/MENTHOL (CHLORASEPTIC ) LOZENGE MM PRN (19:34)
[2021-09-15] MEDS ORDERED: BISMUTH SUBSALICYLATE 524 MG/30 ML PO PRN (19:34)
[2021-09-15] MEDS ORDERED: LOPERAMIDE HCL 2 MG CAPSULE PO PRN (19:34)
[2021-09-15] MEDS ORDERED: DICYCLOMINE HCL 10 MG CAPSULE PO PRN (19:34)
[2021-09-15] MEDS ORDERED: IBUPROFEN 600 MG TABLET (FP) PO PRN (19:34)
[2021-09-15] MEDS ORDERED: MAGNESIUM CITRATE 300 ML BOTTLE PO PRN (19:34)
[2021-09-15] MEDS ORDERED: IBUPROFEN 400 MG TABLET (FP) PO PRN (19:34)
[2021-09-15] MEDS ORDERED: ACETAMINOPHEN 325 MG TABLET (FP) PO PRN ×2 (19:34)
[2021-09-15] MEDS ORDERED: MAGNESIUM HYDROX 2400MG/30ML ORAL SUSPENSION 30 ML CUP PO PRN (19:34)
[2021-09-15] MEDS ORDERED: chlordiazePOXIDE HCL 25 MG CAPSULE PO PRN (19:34)
[2021-09-15] MEDS ORDERED: MAG HYDROX/AL HYDROX/SIMETH 30 ML UNIT-DOSE CUP PO PRN (19:34)
[2021-09-15] MEDS: THIAMINE HCL 100 MG TABLET (FP) PO SCH (21:25)
[2021-09-15] MEDS: hydrOXYzine PAMOATE 25 MG CAPSULE (FP) PO SCH (21:26)
[2021-09-15] MEDS: chlordiazePOXIDE HCL 25 MG CAPSULE PO SCH (22:00)
[2021-09-15] MEDS: MELATONIN 5 MG TABLETS PO SCH (22:26)
[2021-09-16] MEDS: hydrOXYzine PAMOATE 25 MG CAPSULE (FP) PO SCH ×5 (05:55→22:43)
[2021-09-16] MEDS: chlordiazePOXIDE HCL 25 MG CAPSULE PO SCH ×4 (05:55→22:41)
[2021-09-16] MEDS: PRENATAL VITAMINS W/ FOLIC ACID TABLET (FP) PO SCH (10:05)
[2021-09-16] MEDS: THIAMINE HCL 100 MG TABLET (FP) PO SCH (22:41)
[2021-09-16] MEDS: MELATONIN 5 MG TABLETS PO SCH (22:43)
[2021-09-17] MEDS: hydrOXYzine PAMOATE 25 MG CAPSULE (FP) PO SCH ×3 (05:39→13:36)
[2021-09-17] MEDS: chlordiazePOXIDE HCL 25 MG CAPSULE PO SCH ×2 (05:40→10:25)
[2021-09-17 08:48] VITALS: BP 158/90; PULSE 90; TEMP 98.1
[2021-09-17] MEDS: PRENATAL VITAMINS W/ FOLIC ACID TABLET (FP) PO SCH (10:25)
[2021-09-18] MEDS ORDERED: chlordiazePOXIDE HCL 10 MG CAPSULE PO PRN
[2021-09-18] MEDS ORDERED: chlordiazePOXIDE HCL 10 MG CAPSULE PO SCH (05:00)
[2021-09-19] MEDS ORDERED: chlordiazePOXIDE HCL 10 MG CAPSULE PO SCH (05:00)
[2021-09-20] MEDS ORDERED: chlordiazePOXIDE HCL 10 MG CAPSULE PO ONE (05:00)
== END 2021-09-17 14:38 | disposition left against medical advice (07) | DRG 770 ==
LOC: YASAS 18:18 → Y6N 20:35
PROVIDERS: ADMIT Allergy & Immunology; ATTEND Surgery
PROC: HZ2ZZZZ Detoxification Services for Substance Abuse Treatment (ICD-10-PCS; principal; 2021-09-15)
DX: F10.230 Alcohol dependence with withdrawal, uncomplicated (principal); E11.9 Type 2 diabetes mellitus without complications; Z87.891 Personal history of nicotine dependence
CPT/HCPCS: 36415; 82962; 86780; 87811; C9803-CS; U0003; U0005

== ENCOUNTER 2021-12-20 14:16 | Inpatient (IN) | payer OTHER ==
[2021-12-20 17:21] VITALS: BMI 27.2
[2021-12-20] MEDS ORDERED: IBUPROFEN 400 MG TABLET (FP) PO PRN (17:46)
[2021-12-20] MEDS ORDERED: IBUPROFEN 600 MG TABLET (FP) PO PRN (17:46)
[2021-12-20] MEDS ORDERED: ACETAMINOPHEN 325 MG TABLET (FP) PO PRN ×2 (17:46)
[2021-12-20] MEDS ORDERED: chlordiazePOXIDE HCL 25 MG CAPSULE PO PRN (17:46)
[2021-12-20] MEDS ORDERED: MAG HYDROX/AL HYDROX/SIMETH 30 ML UNIT-DOSE CUP PO PRN (17:46)
[2021-12-20] MEDS ORDERED: MAGNESIUM HYDROX 2400MG/30ML ORAL SUSPENSION 30 ML CUP PO PRN (17:46)
[2021-12-20] MEDS ORDERED: BISMUTH SUBSALICYLATE 524 MG/30 ML PO PRN (17:46)
[2021-12-20] MEDS ORDERED: ONDANSETRON *ODT* 4 MG TABLET SL PRN (17:46)
[2021-12-20] MEDS ORDERED: BENZOCAINE/MENTHOL (CHLORASEPTIC ) LOZENGE MM PRN (17:46)
[2021-12-20] MEDS ORDERED: MAGNESIUM CITRATE 300 ML BOTTLE PO PRN (17:46)
[2021-12-20] MEDS: DICYCLOMINE HCL 10 MG CAPSULE PO PRN (18:29)
[2021-12-20] MEDS: hydrOXYzine PAMOATE 25 MG CAPSULE (FP) PO SCH ×2 (18:30→22:21)
[2021-12-20] MEDS: chlordiazePOXIDE HCL 25 MG CAPSULE PO SCH (22:22)
[2021-12-20] MEDS: THIAMINE HCL 100 MG TABLET (FP) PO SCH (22:22)
[2021-12-20] MEDS: MELATONIN 5 MG TABLETS PO SCH (22:22)
[2021-12-21] MEDS: hydrOXYzine PAMOATE 25 MG CAPSULE (FP) PO SCH ×5 (05:54→22:18)
[2021-12-21] MEDS: chlordiazePOXIDE HCL 25 MG CAPSULE PO SCH ×4 (05:54→22:18)
[2021-12-21] MEDS: LOPERAMIDE HCL 2 MG CAPSULE PO PRN ×2 (05:57→17:45)
[2021-12-21] MEDS ORDERED: DICYCLOMINE HCL 10 MG CAPSULE PO ONE (10:00)
[2021-12-21] MEDS: PRENATAL VITAMINS W/ FOLIC ACID TABLET (FP) PO SCH (10:31)
[2021-12-21] MEDS: FAMOTIDINE 20 MG TABLET PO SCH ×2 (10:32→22:18)
[2021-12-21 10:40] LABS: HEMATOCRIT 35.5 % (35.4-49); HEMOGLOBIN 12.1 GM/dL (11.7-16.9); MEAN PLT VOLUME 9.2 fl (7.5-11.1); PLATELET COUNT 183 10^3/uL (134-434); RBC 3.45 M/mm3 (4.00-5.60); RDW 14.2 % (11.9-15.9); WHITE BLOOD COUNT 5.5 K/mm3 (4.0-10.0)
[2021-12-21 10:42] LABS: CHLORIDE 100 mmol/L (98-107); SODIUM 137 mmol/L (136-145)
[2021-12-21 10:45] LABS: BLOOD UREA NITROGEN 11.9 mg/dL (7-18); CALCIUM 8.7 mg/dL (8.5-10.1); CO2 30 mmol/L (21-32); GLUCOSE,RANDOM 111 mg/dL (74-106)
[2021-12-21 10:46] LABS: ALBUMIN 2.8 g/dl (3.4-5.0)
[2021-12-21 10:48] LABS: CREATININE 0.8 mg/dL (0.55-1.3); SGPT/ALT 45 U/L (13-61)
[2021-12-21 10:49] LABS: SGOT/AST 28 U/L (15-37)
[2021-12-21 10:50] LABS: BILIRUBIN,TOTAL 4.1 mg/dL (0.2-1); TOT PROT 6.3 g/dl (6.4-8.2)
[2021-12-21 10:51] LABS: ALK PHOS 74 U/L (45-117)
[2021-12-21 11:00] LABS: ANION GAP 8 MMOL/L (8-16)
[2021-12-21] MEDS ORDERED: POTASSIUM CHLORIDE ORAL LIQUID 20 MEQ/15 ML PO ONE ×2 (12:00→16:00)
[2021-12-21] MEDS: MELATONIN 5 MG TABLETS PO SCH (22:18)
[2021-12-21] MEDS: THIAMINE HCL 100 MG TABLET (FP) PO SCH (22:18)
[2021-12-21] MEDS: METHOCARBAMOL 500 MG TABLET PO PRN (22:21)
[2021-12-22] MEDS: chlordiazePOXIDE HCL 25 MG CAPSULE PO SCH ×3 (06:11→19:18)
[2021-12-22] MEDS: METHOCARBAMOL 500 MG TABLET PO PRN (06:11)
[2021-12-22] MEDS: hydrOXYzine PAMOATE 25 MG CAPSULE (FP) PO SCH ×4 (06:11→19:18)
[2021-12-22] MEDS: PRENATAL VITAMINS W/ FOLIC ACID TABLET (FP) PO SCH (10:30)
[2021-12-22] MEDS: FAMOTIDINE 20 MG TABLET PO SCH (10:30)
[2021-12-22] MEDS: DICYCLOMINE HCL 10 MG CAPSULE PO PRN (12:29)
[2021-12-22 17:30] LABS: HIV INTERPRETATION NEGATIVE (NEGATIVE)
[2021-12-22] MEDS: MELATONIN 5 MG TABLETS PO SCH (23:49)
[2021-12-23] MEDS ORDERED: LORazepam 0.5 MG TABLET PO PRN
[2021-12-23] MEDS ORDERED: chlordiazePOXIDE HCL 10 MG CAPSULE PO PRN
[2021-12-23] MEDS: hydrOXYzine PAMOATE 25 MG CAPSULE (FP) PO SCH ×4 (00:52→14:50)
[2021-12-23] MEDS: FAMOTIDINE 20 MG TABLET PO SCH ×3 (00:52→22:57)
[2021-12-23] MEDS: chlordiazePOXIDE HCL 25 MG CAPSULE PO SCH (00:53)
[2021-12-23] MEDS: THIAMINE HCL 100 MG TABLET (FP) PO SCH ×2 (00:53→22:57)
[2021-12-23] MEDS ORDERED: chlordiazePOXIDE HCL 10 MG CAPSULE PO SCH (05:00)
[2021-12-23] MEDS ORDERED: LORazepam 2 MG TABLET PO SCH (11:00)
[2021-12-23] MEDS: LACTULOSE 20 GM/30 ML UDC (FOR ORAL USE ONLY) PO SCH ×2 (11:04→22:56)
[2021-12-23] MEDS: PRENATAL VITAMINS W/ FOLIC ACID TABLET (FP) PO SCH (11:04)
[2021-12-23] MEDS: LORazepam 0.5 MG TABLET PO SCH ×3 (11:44→22:56)
[2021-12-23] MEDS ORDERED: hydrOXYzine PAMOATE 25 MG CAPSULE (FP) PO PRN (14:13)
[2021-12-23] MEDS: MELATONIN 5 MG TABLETS PO PRN (22:57)
[2021-12-24] MEDS ORDERED: chlordiazePOXIDE HCL 10 MG CAPSULE PO SCH (05:00)
[2021-12-24] MEDS: LORazepam 0.5 MG TABLET PO SCH ×3 (06:23→22:50)
[2021-12-24] MEDS: PRENATAL VITAMINS W/ FOLIC ACID TABLET (FP) PO SCH (10:38)
[2021-12-24] MEDS: FAMOTIDINE 20 MG TABLET PO SCH ×2 (10:38→22:50)
[2021-12-24] MEDS: LACTULOSE 20 GM/30 ML UDC (FOR ORAL USE ONLY) PO SCH ×2 (10:39→23:13)
[2021-12-24] MEDS: THIAMINE HCL 100 MG TABLET (FP) PO SCH (22:50)
[2021-12-24] MEDS: MELATONIN 5 MG TABLETS PO PRN (22:51)
[2021-12-25] MEDS ORDERED: chlordiazePOXIDE HCL 10 MG CAPSULE PO ONE (05:00)
[2021-12-25] MEDS ORDERED: LORazepam 0.5 MG TABLET PO ONE (05:00)
[2021-12-25] MEDS: LACTULOSE 20 GM/30 ML UDC (FOR ORAL USE ONLY) PO SCH ×3 (05:55→22:29)
[2021-12-25] MEDS: FAMOTIDINE 20 MG TABLET PO SCH ×2 (10:35→22:29)
[2021-12-25] MEDS: PRENATAL VITAMINS W/ FOLIC ACID TABLET (FP) PO SCH (10:36)
[2021-12-25] MEDS: THIAMINE HCL 100 MG TABLET (FP) PO SCH (22:29)
[2021-12-25] MEDS: MELATONIN 5 MG TABLETS PO PRN (22:29)
[2021-12-26] MEDS: LACTULOSE 20 GM/30 ML UDC (FOR ORAL USE ONLY) PO SCH (05:25)
[2021-12-26 07:11] VITALS: TEMP 97.5
[2021-12-26] MEDS: PRENATAL VITAMINS W/ FOLIC ACID TABLET (FP) PO SCH (09:56)
[2021-12-26] MEDS: FAMOTIDINE 20 MG TABLET PO SCH (09:56)
[2021-12-26 12:01] VITALS: BP 126/71; PULSE 74; RESP 18
== END 2021-12-26 11:36 | disposition home or self-care (01) | DRG 774 ==
LOC: YASAS 14:16 → Y6N 18:01
PROVIDERS: ADMIT Allergy & Immunology; ATTEND Surgery
PROC: HZ2ZZZZ Detoxification Services for Substance Abuse Treatment (ICD-10-PCS; principal; 2021-12-20)
DX: F10.230 Alcohol dependence with withdrawal, uncomplicated (principal); F14.20 Cocaine dependence, uncomplicated; E72.20 Disorder of urea cycle metabolism, unspecified; E80.6 Other disorders of bilirubin metabolism; A04.9 Bacterial intestinal infection, unspecified; R79.89 Other specified abnormal findings of blood chemistry; Z87.891 Personal history of nicotine dependence
CPT/HCPCS: 36415; 80053; 82140; 82247; 82962; 84132; 85027; 86780; 87389; C9803-CS; U0003; U0005

== ENCOUNTER 2021-12-22 15:40 | Emergency (ER) | payer OTHER ==
[2021-12-22 15:54] VITALS: BMI 27.3
[2021-12-22] MEDS ORDERED: SODIUM CHLORIDE 0.9% 500 ML INFUS.BAG IV ONE (17:45)
[2021-12-22] MEDS ORDERED: ACETAMINOPHEN 1000 MG/100 ML BAG IVPB ONE (17:54)
[2021-12-22] MEDS ORDERED: ACETAMINOPHEN INJECTION 100 ML IVPB ONE (18:13)
[2021-12-22] MEDS ORDERED: FAMOTIDINE 20 MG/50 ML IVPB 20 MG/50 ML MG IVPB ONE (18:30)
[2021-12-22 18:41] LABS: EPI CELLS 12 /uL (0-25.1); HYALINE CASTS 2 /uL (0-3.1); PH,URINE >= 9.0 (5.0-8.0); URINE APPEARANCE CLEAR; URINE BACTERIA 11 /uL (0-1359); URINE BILIRUBIN 1+ (NEGATIVE); URINE COLOR DK YELLOW; URINE GLUCOSE (UA) NEGATIVE (NEGATIVE); URINE KETONE TRACE (NEGATIVE); URINE LEUK ESTERASE 1+ (NEGATIVE); URINE NITRITE NEGATIVE (NEGATIVE); URINE PROTEIN 1+ (NEGATIVE); URINE RBC 9 /uL (0-23.9); URINE UROBILINOGEN 4.0 E.U/dl mg/dL (0.2-1.0); URINE WBC 12 /uL (0-25.8)
[2021-12-22 18:51] LABS: EOS % 1.8 % (0-4.5); HEMATOCRIT 34.2 % (35.4-49); HEMOGLOBIN 11.8 GM/dL (11.7-16.9); LYMPH % 24.1 % (8-40); MCH 35.7 pg (25.7-33.7); MCHC 34.4 g/dl (32.0-35.9); MEAN CELL VOLUME 103.6 fl (80-96); MEAN PLT VOLUME 7.9 fl (7.5-11.1); MONO % 17.2 % (3.8-10.2); NEUT % 55.9 % (42.8-82.8); PLATELET COUNT 242 10^3/uL (134-434); RDW 13.8 % (11.9-15.9); WHITE BLOOD COUNT 4.2 K/mm3 (4.0-10.0)
[2021-12-22] MEDS ORDERED: THIAMINE HCL 200 MG/2 ML VIAL IVPB ONE (18:58)
[2021-12-22 19:11] LABS: ALBUMIN 2.8 g/dl (3.4-5.0); BLOOD UREA NITROGEN 7.2 mg/dL (7-18); CALCIUM 9.7 mg/dL (8.5-10.1)
[2021-12-22 19:14] LABS: CREATININE 0.9 mg/dL (0.55-1.3)
[2021-12-22 19:16] LABS: BILIRUBIN,TOTAL 2.8 mg/dL (0.2-1); TOT PROT 6.6 g/dl (6.4-8.2)
[2021-12-22] MEDS ORDERED: FAMOTIDINE 10 MG/ML VIAL IVPB ONE (19:59)
[2021-12-22] MEDS ORDERED: THIAMINE HCL 200 MG/2 ML VIAL ONE (19:59)
[2021-12-22 23:30] LABS: BILIRUBIN,DIRECT 0.7 mg/dL (0.0-0.2)
[2021-12-23 01:45] VITALS: BP 125/71; PULSE 75; RESP 18; TEMP 98.1
== END 2021-12-23 01:45 | disposition home or self-care (01) ==
LOC: JER 15:40
PROC: 3E033GC Introduction of Other Therapeutic Substance into Peripheral Vein, Percutaneous Approach (ICD-10-PCS; principal; 2021-12-22)
DX: K52.9 Noninfective gastroenteritis and colitis, unspecified (principal)
CPT/HCPCS: 36415; 74177-TC; 76705-TC; 80053; 81003; 82248; 82272; 83605; 83690; 85025; 99285-25; Q9967